=== PATIENT | male | born 1975 | race Caucasian/White ===

== ENCOUNTER 2022-01-17 12:22 | Observation (INO) ==
[2022-01-17] MEDS ORDERED: 0.9 % Sodium Chloride 500 ML IVC ONE (12:32)
[2022-01-17] MEDS ORDERED: Nitroglycerin 1 INCH/GM PACKET TP ONE (12:32)
[2022-01-17 12:50] LABS: Basophils # 0.1 K/mcL (0.0-0.2); Basophils % 0.5 %; Eosinophils # 0.4 K/mcL (0.0-0.6); Eosinophils % 3.9 %; Hematocrit 49.3 % (37.5-50.1); Hemoglobin 17.2 g/dL (12.9-16.9); Immature Granulocytes % 0.5 % (0-4); Lymphocytes # 2.9 K/mcL (0.6-4.6); Lymphocytes % 30.1 %; Mean Corpuscular HGB Conc 34.9 g/dL (31.6-35.5); Mean Corpuscular Hemoglobin 28.5 pg (28.0-33.3); Mean Corpuscular Volume 81.6 fL (83.0-100.0); Mean Platelet Volume 10.6 fL (9.4-12.4); Monocytes # 1.1 K/mcL (0.0-1.3); Monocytes % 11.5 %; Neutrophils # 5.1 K/mcL (1.6-8.9); Platelet Count 262 K/mcL (140-400); Red Blood Count 6.04 M/mcL (4.19-5.50); Red Cell Distribution Width 13.2 % (11.5-14.5); Segmented Neutrophils % 53.5 %; White Blood Count 9.5 K/mcL (4.3-11.1)
[2022-01-17 13:01] LABS: INR 1.1; Prothrombin Time 12.5 Seconds (9.4-12.1)
[2022-01-17 13:04] LABS: Activated Partial Thrombo Time 31.1 Seconds (26.0-36.0)
[2022-01-17 13:08] LABS: BUN/Creatinine Ratio 18 (6-26); Blood Urea Nitrogen 16 mg/dL (6-20); Calcium 10.1 mg/dL (8.6-10.3); Carbon Dioxide 30 mEq/L (23-29); Chloride 100 mEq/L (98-107); D-Dimer < 215 ng/mLFEU (0-500); Glucose 105 mg/dL (70-105); Osmolality,Calculated 290 (280-300); Potassium 3.7 mEq/L (3.5-5.1); Sodium 139 mEq/L (136-145)
[2022-01-17 13:09] LABS: Albumin 4.6 g/dL (3.5-5.7); Albumin/Globulin Ratio 1.4 (1.1-2.2); Bilirubin,Direct 0.1 mg/dL (0.0-0.2); Bilirubin,Indirect 1.1 mg/dL (0.0-1.0); Bilirubin,Total 1.2 mg/dL (0.3-1.0); Globulin 3.3 g/dL (2.4-3.5); Total Protein 7.9 g/dL (6.4-8.9)
[2022-01-17 13:12] LABS: Troponin I < 0.03 ng/mL (< 0.04)
[2022-01-17] MEDS ORDERED: *HR* Heparin 5,000 UNIT/ML VIAL IVP ONE (13:31)
[2022-01-17] MEDS ORDERED: Aspirin 325 MG TABLET PO ONE (13:31)
[2022-01-17] MEDS ORDERED: *HR* Heparin 5,000 UNIT/ML VIAL IVP PRN ×2 (13:31)
[2022-01-17] MEDS ORDERED: Heparin 25,000UNIT/250ML 1/2NS 25,000 UNIT/250 ML IV.SOLN IVC SCH (13:45)
[2022-01-17] MEDS ORDERED: Naloxone 0.4 MG/ML INJ IVP PRN (15:36)
[2022-01-17] MEDS ORDERED: Nitroglycerin 0.4 MG TAB.SUBL SL PRN (15:37)
[2022-01-17] MEDS ORDERED: Olopatadine Hcl [Pataday] 2.5 ML Drops OP PRN (15:37)
[2022-01-17] MEDS ORDERED: *HR* Dextrose 50 % in Water (Syg) 50 ML SYRINGE IVP PRN (15:39)
[2022-01-17] MEDS ORDERED: D5% in Water 1,000 ML IVC PRN (15:39)
[2022-01-17] MEDS ORDERED: Dextrose Gel 15 GM/37.5 ML TUBE PO PRN ×2 (15:39)
[2022-01-17] MEDS: *HR* Metformin 500 MG TABLET PO SCH ×2 (16:26→21:12)
[2022-01-17] MEDS: Insulin LISPRO 300 UNITS/3 ML VIAL SUBQ SCH ×2 (16:27→21:14)
[2022-01-17] MEDS: Gabapentin 300 MG CAPSULE PO SCH (21:12)
[2022-01-17] MEDS: Insulin DETEMIR 100 UNIT/ML X5UNITS SUBQ SCH (21:13)
[2022-01-18 01:40] LABS: Basophils % 0.4 %; Eosinophils # 0.5 K/mcL (0.0-0.6); Eosinophils % 5.1 %; Hematocrit 44.8 % (37.5-50.1); Hemoglobin 15.5 g/dL (12.9-16.9); Immature Granulocytes % 0.4 % (0-4); Lymphocytes # 2.8 K/mcL (0.6-4.6); Lymphocytes % 29.5 %; Mean Corpuscular HGB Conc 34.6 g/dL (31.6-35.5); Mean Corpuscular Hemoglobin 28.4 pg (28.0-33.3); Mean Corpuscular Volume 82.1 fL (83.0-100.0); Mean Platelet Volume 10.8 fL (9.4-12.4); Monocytes % 10.5 %; Neutrophils # 5.1 K/mcL (1.6-8.9); Platelet Count 210 K/mcL (140-400); Red Blood Count 5.46 M/mcL (4.19-5.50); Red Cell Distribution Width 13.2 % (11.5-14.5); Segmented Neutrophils % 54.1 %; White Blood Count 9.4 K/mcL (4.3-11.1)
[2022-01-18 01:59] LABS: BUN/Creatinine Ratio 20 (6-26); Blood Urea Nitrogen 16 mg/dL (6-20); Carbon Dioxide 26 mEq/L (23-29); Chloride 101 mEq/L (98-107); Glucose 128 mg/dL (70-105); Magnesium 1.6 mg/dL (1.6-2.6); Osmolality,Calculated 285 (280-300); Potassium 3.5 mEq/L (3.5-5.1); Sodium 136 mEq/L (136-145)
[2022-01-18] MEDS ORDERED: *HR* Heparin 5,000 UNIT/ML VIAL IVP PRN ×2 (08:25)
[2022-01-18] MEDS ORDERED: *HR* Heparin 5,000 UNIT/ML VIAL IVP ONE (08:25)
[2022-01-18 09:18] LABS: Hematocrit 45.8 % (37.5-50.1); Mean Corpuscular HGB Conc 34.9 g/dL (31.6-35.5); Mean Corpuscular Hemoglobin 28.5 pg (28.0-33.3); Mean Corpuscular Volume 81.6 fL (83.0-100.0); Mean Platelet Volume 10.7 fL (9.4-12.4); Platelet Count 238 K/mcL (140-400); Red Blood Count 5.61 M/mcL (4.19-5.50); Red Cell Distribution Width 13.2 % (11.5-14.5); White Blood Count 8.7 K/mcL (4.3-11.1)
[2022-01-18 09:26] LABS: Heparin anti-factor XA UFH 0.22 IU/mL (0.30-0.70); INR 1.1; Prothrombin Time 11.7 Seconds (9.4-12.1)
[2022-01-18] MEDS: Insulin LISPRO 300 UNITS/3 ML VIAL SUBQ SCH ×4 (09:39→21:22)
[2022-01-18] MEDS: Loratadine 10 MG TABLET PO SCH (09:39)
[2022-01-18] MEDS: Gabapentin 300 MG CAPSULE PO SCH ×3 (09:40→21:25)
[2022-01-18] MEDS: *HR* Metformin 500 MG TABLET PO SCH ×3 (09:40→21:33)
[2022-01-18] MEDS: amLODIPine 5 MG TABLET PO SCH (09:57)
[2022-01-18] MEDS: Aspirin 81 MG TAB.CHEW PO SCH (09:57)
[2022-01-18] MEDS: Heparin 25,000UNIT/250ML 1/2NS 25,000 UNIT/250 ML IV.SOLN IVC SCH (10:02)
[2022-01-18] MEDS: Insulin DETEMIR 100 UNIT/ML X5UNITS SUBQ SCH (21:33)
[2022-01-18 23:07] VITALS: RESP 18
[2022-01-19] MEDS: Heparin 25,000UNIT/250ML 1/2NS 25,000 UNIT/250 ML IV.SOLN IVC SCH (01:17)
[2022-01-19 03:40] VITALS: O2SAT 95
[2022-01-19 07:07] VITALS: BP 114/77; PULSE 74; TEMP 97.6
[2022-01-19] MEDS: Insulin LISPRO 300 UNITS/3 ML VIAL SUBQ SCH (09:01)
[2022-01-19] MEDS: Aspirin 81 MG TAB.CHEW PO SCH (10:26)
[2022-01-19] MEDS: Loratadine 10 MG TABLET PO SCH (10:26)
[2022-01-19] MEDS: amLODIPine 5 MG TABLET PO SCH (10:26)
[2022-01-19] MEDS: *HR* Metformin 500 MG TABLET PO SCH (10:27)
[2022-01-21] MEDS ORDERED: Semaglutide [Ozempic] 1 MG/0.75 ML Pen.Injctr SUBQ SCH (09:00)
== END 2022-01-19 11:05 | disposition home or self-care (01) ==
LOC: INPPIK 12:22 → EMEROOPIK 12:22 → INPPIK 15:58
PROVIDERS: ADMIT Internal Medicine; ATTEND Internal Medicine